=== PATIENT | female | born 1975 | race Caucasian/White ===

== ENCOUNTER 2019-10-22 13:35 | Outpatient (CLI) | payer OTHER ==
--- NOTE | 2019-11-07 11:14 | MMO ---
Bilateral MAMMO Bilat Screen DDI. CLINICAL HISTORY: Patient is 44 years old and is seen for screening. The patient has no family history of breast cancer. The patient has no personal history of cancer. VIEWS: The views performed were: bilateral craniocaudal and bilateral mediolateral oblique. FILMS COMPARED: The present examination has been compared to prior imaging studies performed at [facility] on 05/08/2012 and 04/24/2014. This study has been interpreted with the assistance of computer-aided detection. MAMMOGRAM FINDINGS: There are scattered fibroglandular densities. There are two round masses with circumscribed margins seen in the right breast. One of these measures 7mm and is at 12 oclock anterior depth. The other also measures 7mm and is lower outer anterior depth. In the left breast, there are no suspicious masses, calcifications or areas of architectural distortion. IMPRESSION: MASSES IN THE RIGHT BREAST REQUIRE ADDITIONAL EVALUATION. AN ULTRASOUND EXAM IS RECOMMENDED. ACR BI-RADS Category 0 - Incomplete: Need additional imaging evaluation. [facility] and the [facility] will notify the patient of the need for additional imaging services. MAMMOGRAPHY NOTE: 1. A negative mammogram report should not delay a biopsy if a dominant of clinically suspicious mass is present. 2. Approximately 10% to 15% of breast cancers are not detected by mammography. 3. Adenosis and dense breasts may obscure an underlying neoplasm. Reported by: LAKESHA WINKLER MD Electonically Signed: [id number]
== END 2019-10-22 13:36 | disposition home or self-care (01) ==
LOC: BICMAMMO 13:35
DX: Z12.31 Encounter for screening mammogram for malignant neoplasm of breast (principal); N63.13 Unspecified lump in the right breast, lower outer quadrant
CPT/HCPCS: 77067

== ENCOUNTER 2019-11-14 10:08 | Outpatient (CLI) | payer OTHER ==
--- NOTE | 2019-11-14 11:03 | MMO ---
Right Breast MAMMO Unilat Diag DDI RT+JOHN. CLINICAL HISTORY: Patient is 44 years old and is seen for diagnostic exam. VIEWS: The views performed were: . FILMS COMPARED: The present examination has been compared to prior imaging studies performed at [facility] on 10/22/2019 and 11/14/2019, and at [facility] on 05/08/2012 and 04/24/2014. This study has been interpreted with the assistance of computer-aided detection. MAMMOGRAM FINDINGS: There are scattered fibroglandular densities. Additional views were performed. Standard digital mammography was supplemented by the acquisition of digital breast tomosynthesis. The previously seen abnormalities are no longer seen on the current study, indicating that they were summation shadowing artifact due to overlapping fibroglandular tissue. There are no suspicious masses, suspicious calcifications, or new areas of architectural distortion. IMPRESSION: THERE IS NO MAMMOGRAPHIC EVIDENCE OF MALIGNANCY. A ROUTINE FOLLOW-UP MAMMOGRAM IN 1 YEAR IS RECOMMENDED. THE RESULTS OF THIS EXAM WERE SENT TO THE PATIENT. ACR BI-RADS Category 2 - Benign finding MAMMOGRAPHY NOTE: 1. A negative mammogram report should not delay a biopsy if a dominant of clinically suspicious mass is present. 2. Approximately 10% to 15% of breast cancers are not detected by mammography. 3. Adenosis and dense breasts may obscure an underlying neoplasm. Reported by: TEODORA GREEN MD Electonically Signed: [id number]
== END 2019-11-14 10:09 | disposition home or self-care (01) ==
LOC: BICULT 10:08 → BICMAMMO 10:09
DX: N63.13 Unspecified lump in the right breast, lower outer quadrant (principal); N63.11 Unspecified lump in the right breast, upper outer quadrant
CPT/HCPCS: G0279